=== PATIENT | male | born 1975 | race African-American/Black ===

== ENCOUNTER 2018-10-07 14:53 | Emergency (ER) | payer SELFPAY ==
[~2018-10-07] VITALS: Ht 170.2 cm; Wt 64.1 kg
[2018-10-07 15:02] VITALS: Ht 170.2 cm; Wt 64.1 kg
[2018-10-07 15:42] LABS: BASOPHILS 0.5 % (0-2); EOSINOPHILS 3.7 % (0-7); HEMATOCRIT 46.7 % (42.0-54.0); HEMOGLOBIN 15.6 g/dL (13.5-17.5); LYMPHOCYTES 37.8 % (15-50); MCH 27.8 pg (26.0-34.0); MCHC 33.4 g/dL (31.0-37.0); MCV 83.1 fL (80.0-100.0); MEAN PLATELET VOLUME 9.8 fL (7.4-10.4); MONOCYTES 9.3 % (2-11); NEUTROPHILS 48.7 % (40-80); PLATELET COUNT 200 10x3/uL (130-400); RBC 5.62 10x6/uL (4.20-6.10); WBC 4.3 10x3/uL (4.8-10.8)
[2018-10-07 15:52] LABS: ALBUMIN 3.8 g/dL (3.4-5.0); ALKALINE PHOSPHATASE 58 U/L (46-116); ALT (SGPT) 24 U/L (10-68); BILIRUBIN - TOTAL 1.06 mg/dL (0.2-1.3); CALC OSMOLALITY 282 mosm/kg (275-300); CALCIUM 8.9 mg/dL (8.5-10.1); CARBON DIOXIDE 30.3 mmol/L (21.0-32.0); CHLORIDE - SERUM 105 mmol/L (98-107); CREATININE - SERUM 0.8 mg/dL (0.6-1.3); GLUCOSE 81 mg/dL (74-106); POTASSIUM - SERUM 4.2 mmol/L (3.5-5.1); PROTEIN - SERUM 6.9 g/dL (6.4-8.2); SODIUM 142 mmol/L (136-145); UREA NITROGEN 16 mg/dL (7-18); eGFR NON AFRICAN AMERICAN > 90 mL/min (90-120)
[2018-10-07 15:56] LABS: INR 1.09 (0.85-1.17); PROTIME 13.6 SECONDS (11.6-15.0)
[2018-10-07 16:02] LABS: CKMB 0.8 U/L (0.0-3.6); CREATINE KINASE 153 UL (21-232); MAGNESIUM - SERUM 1.7 mg/dL (1.8-2.4); TROPONIN-I < 0.017 ng/mL (0.000-0.060)
[2018-10-07] MEDS ORDERED: ALBUTEROL SULF8.5 GM INH (17:05)
[2018-10-07] MEDS ORDERED: PREDNISONE20 MG PO (17:05)
[2018-10-07] MEDS ORDERED: AMOXICILLIN500 M1 PO (17:31)
[2018-10-07] MEDS ORDERED: VOLTAREN75 MG PO (17:31)
[2018-10-07 18:02] VITALS: BP 123/80
== END 2018-10-07 18:04 | disposition home or self-care (01) ==
LOC: D.ER 14:53
PROVIDERS: Emergency Medicine
DX: J40 Bronchitis, not specified as acute or chronic (principal); K08.89 Other specified disorders of teeth and supporting structures; R07.81 Pleurodynia